=== PATIENT | female | born 1990 | race Caucasian/White ===

== ENCOUNTER 2018-01-30 00:37 | Emergency (ER) | payer BC ==
[~2018-01-30] VITALS: Ht 157.5 cm; Wt 61.8 kg
[2018-01-30 01:27] LABS: HEMATOCRIT 38.5 % (36.0-46.0); HEMOGLOBIN 13.4 G/DL (11.9-15.5); MCH 31.2 PG (29.0-34.0); MCHC 34.8 G/DL (30.0-36.0); MCV 89.5 FL (83-99); PLATELET COUNT 205 K/uL (156-360); RBC DIS.WIDTH-CV 12.7 % (11.8-14.6); RBC DIS.WIDTH-SD 41.5 % (39-53); WHITE BLOOD COUNT 9.2 K/uL (4.1-10.2)
[2018-01-30 01:36] LABS: CHLORIDE 102 mEq/L (99-109); POTASSIUM 4.1 mEq/L (3.7-5.4); SODIUM 138 mEq/L (136-147)
[2018-01-30 01:38] LABS: GLUCOSE 119 mg/dL (70-99)
[2018-01-30 01:42] LABS: GFR ESTIMATE (CALCULATED) > 59 mL/min/
[2018-01-30 01:43] LABS: UREA NITROGEN (BUN) 19 mg/dL (9-23)
[2018-01-30 01:49] LABS: TROP-I INTERPRETATION NEGATIVE; TROPONIN-I < 0.01 ng/mL (0.0-0.30)
[2018-01-30 04:03] VITALS: BP 123/79
== END 2018-01-30 04:05 | disposition home or self-care (01) ==
LOC: EME 00:37
DX: R00.2 Palpitations (principal); Z87.442 Personal history of urinary calculi; Z88.0 Allergy status to penicillin; Z88.2 Allergy status to sulfonamides; F17.200 Nicotine dependence, unspecified, uncomplicated
CPT/HCPCS: 71046; 80048; 84484; 85027; 93005; 99281; 99284